=== PATIENT | female | born 1990 | race Caucasian/White ===

== ENCOUNTER → 2016-08-21 | Outpatient (CLI) | payer BC ==
[2016-08-21 11:04] LABS: MEAN CORPUSCULAR HEMOGLOBIN 29.4 pg (27.0-33.0); MEAN CORPUSCULAR HGB CONC 33.7 g/dl (32.0-36.5); MEAN CORPUSCULAR VOLUME 87.4 fl (80.0-96.0); RED CELL DISTRIBUTION WIDTH 12.6 % (11.5-14.5); WHITE BLOOD COUNT 5.7 K/mm3 (4.0-10.0)
[2016-08-21 11:43] LABS: ALBUMIN 3.9 GM/DL (3.2-5.2); ALBUMIN/GLOBULIN RATIO 1.26 (1.00-1.93); ALKALINE PHOSPHATASE 62 U/L (45-117); ALT/SGPT 16 U/L (12-78); ANION GAP 7 MEQ/L (8-16); AST/SGOT 7 U/L (15-37); BILIRUBIN,TOTAL 0.5 MG/DL (0.2-1.0); BLOOD UREA NITROGEN 13 MG/DL (7-18); CALCIUM LEVEL 8.7 MG/DL (8.5-10.1); CARBON DIOXIDE LEVEL 28 MEQ/L (21-32); CHLORIDE LEVEL 107 MEQ/L (98-107); CHOLESTEROL LEVEL 190 MG/DL (<200); CREATININE FOR GFR 0.74 MG/DL (0.55-1.02); GLOMERULAR FILTRATION RATE > 60.0 (>60); GLUCOSE, FASTING 81 MG/DL (70-105); POTASSIUM SERUM 4.1 MEQ/L (3.5-5.1); SODIUM LEVEL 142 MEQ/L (136-145); THYROXINE (T4) 8.3 UG/DL (4.5-12.0); TRIGLYCERIDES LEVEL 79 MG/DL (<150)
== END ==
LOC: M LAB 10:05
PROVIDERS: ATTEND Family Medicine
DX: D64.9 Anemia, unspecified (principal); R53.83 Other fatigue; E03.9 Hypothyroidism, unspecified

== ENCOUNTER → 2019-07-02 | Outpatient (CLI) | payer BC ==
--- NOTE | 2019-07-02 14:22 | REP ---
Focused right breast sonography: History: Unspecified lump in the right breast lower inner quadrant, 6 o'clock, 2 inches below the nipple, 2.0 x 2.0 cm. Sonographic findings: Focused right breast sonography is carried out from 5 o'clock to 7 o'clock focusing on the palpable area at 6 o'clock. Heterogeneous fibroglandular background echotexture is seen. No cyst or mass is observed sonographically. No suspicious feature. Impression: BIRADS category 1 negative sonographic findings. Clinical followup is advised. Electronically Signed by Everette Dowling MD 07/02/2019 05:20 P
== END ==
LOC: M RAD 12:21
PROVIDERS: ATTEND Advanced Practice Midwife
DX: N60.21 Fibroadenosis of right breast (principal)